=== PATIENT | female | born 1970 | race Caucasian/White ===

== ENCOUNTER → 2019-05-21 15:53 | Outpatient (BNVA) | payer BC, OTHER, SELFPAY | PROVIDERS: Visit Provider Nurse Practitioner Family | DX: I10 Essential (primary) hypertension (principal) | CPT/HCPCS: 80053; 80061; 84443 ==

== ENCOUNTER → 2019-09-03 11:33 | Outpatient (BNVA) | payer BC, SELFPAY | PROVIDERS: Visit Provider Nurse Practitioner Family | DX: I10 Essential (primary) hypertension (principal); E55.9 Vitamin D deficiency, unspecified; E11.9 Type 2 diabetes mellitus without complications | CPT/HCPCS: 80053; 80061; 83036; 84443; 85025 ==

== ENCOUNTER → 2019-09-10 17:01 | Outpatient (BNVA) | payer BC, SELFPAY | PROVIDERS: Visit Provider Nurse Practitioner Family | DX: E11.9 Type 2 diabetes mellitus without complications (principal); D64.9 Anemia, unspecified; G47.62 Sleep related leg cramps; E83.42 Hypomagnesemia; R35.0 Frequency of micturition; E55.9 Vitamin D deficiency, unspecified; K21.9 Gastro-esophageal reflux disease without esophagitis; I10 Essential (primary) hypertension | CPT/HCPCS: 81003 ==

== ENCOUNTER → 2019-09-17 15:02 | Outpatient (BNVA) | payer BC, SELFPAY | PROVIDERS: Visit Provider Nurse Practitioner Family | DX: D64.9 Anemia, unspecified (principal); G47.62 Sleep related leg cramps; E83.42 Hypomagnesemia; E55.9 Vitamin D deficiency, unspecified; E11.9 Type 2 diabetes mellitus without complications | CPT/HCPCS: 82306; 83540; 83735 ==

== ENCOUNTER → 2019-09-25 10:47 | Outpatient (BNVA) | payer BC, SELFPAY | PROVIDERS: Visit Provider Nurse Practitioner Family | DX: I10 Essential (primary) hypertension (principal); R73.9 Hyperglycemia, unspecified; M79.89 Other specified soft tissue disorders | CPT/HCPCS: 36415; 80053; 82306; 83540; 83735 ==

== ENCOUNTER 2021-10-12 08:06 | Outpatient (CLI) | payer BC, SELFPAY ==
--- NOTE | 2021-10-12 08:18 | MM_ITS ---
WS: [id number] . BILATERAL SCREENING DIGITAL TOMOSYNTHESIS MAMMOGRAM WITH CAD HISTORY: SCREENING COMPARISON: 09/10/2014 and 08/30/2013 Bilateral CC and MLO views with tomosynthesis and synthetic mammography submitted. Computer aided det ection analyzed. Breast composition: There are scattered areas of fibroglandular density. No suspicious masses, microc alcifications or architectural distortion. Benign RIGHT axillary tail lymph node. MM/[place] [id number] IMPRESSION: BI-RADS: 2-Benign FOLLOW UP: 1 Year Follow-up
== END 2021-10-12 08:07 | disposition home or self-care (01) ==
LOC: RAD 08:08
PROVIDERS: PCP Family Medicine; Visit Provider Family Medicine
DX: Z12.31 Encounter for screening mammogram for malignant neoplasm of breast (principal)
CPT/HCPCS: 77063; 77067

== ENCOUNTER 2022-04-14 17:19 | Emergency (ER) | payer BC, SELFPAY ==
[2022-04-14] VITALS (9 sets, daily range): BP systolic 115–152; BP diastolic 54–93; PULSE 60–80; RESP 14–25; O2SAT 94–98; BMI 32.8
--- NOTE | 2022-04-14 17:36 | ECG_ITS ---
[facility] Test Date: 2022-04-14 Pat Name: Elma Taylor Department: Room: Gender: Female Iv Therapy Nurse: : 1970 Requested By: Shelia Royal Order Number: [id number] Pete MD: Ger Pearson M.D. Measurements Intervals [place] Rate: 75 P: 3 [place]: 158 QRS: 19 QRSD: 79 T: 25 QT: 375 QTc: 420 Interpretive Statements SINUS RHYTHM WITH OCCASIONAL SUPRAVENTRICULAR PREMATURE COMPLEXES LOW QRS VOLTAGE IN PRECORDIAL LEADS [QRS DEFLECTION < 1.0 mV IN CHEST LEADS] WARNING: DATA QUALITY MAY AFFECT INTERPRETATION No previous ECG available for comparison Electronically Signed On 04-14-2022 22:51:09 MANGLE PRESS CATCH[employer] by Ger Pearson M.D. [id number]
--- NOTE | 2022-04-14 17:48 | XRR_ITS ---
PROCEDURE INFORMATION: Exam: XR Chest Exam date and time: 04/14/2022 6:20 PM Age: 51 years old Clinical indication: Pain; Chest pressure; Additional info: Pre op TECHNIQUE: Imaging protocol: Radiologic exam of the chest. Views: 1 view. COMPARISON: No relevant prior studies available. FINDINGS: Lungs: Unremarkable. No consolidation. Pleural spaces: Unremarkable. No pleural effusion. No pneumothorax. Heart/Mediastinum: Moderate intrathoracic hiatal hernia. Bones/joints: Unremarkable. Other findings: Patient rotation to the right. XR/XR chest 1V portable [id number] assessment IMPRESSION: Moderate intrathoracic hiatal hernia.
--- NOTE | 2022-04-14 17:52 | W.ED.CHESTPA ---
HPI - Chest Pain General: Chief Complaint: Chest Pain Stated Complaint: CHEST AND SHOULDER PAIN Time Seen by Provider: 04/14/22 17:29 Source: patient Mode of arrival: EMS Limitations: no limitations History of Present Illness: This 51-year-old female with a history of diabetes, GERD, hiatal hernia and hypertension presents to the ER with sudden onset left-sided chest pain/left shoulder pain that started while she was sitting down at work. Pain has been constant since onset and is associated with nausea but no vomiting. She has no fever or cough. She has never had pain like this before. She received 324 mg aspirin and 4 mg Zofran in route to the hospital. She currently rates pain at 4 out of 10. Review of Systems Const: Denies: chills, body aches or change in appetite Card: Reports: chest pain; Denies: lightheadedness : Denies: dysuria Musc: Reports: joint pain (Left shoulder); Denies: neck pain or back pain Neuro: Denies: headache(s) or weakness in extremities Psych: Denies: depression PFSH ED PFSH: Medical History Anemia Diabetes mellitus, type II Essential hypertension GERD (gastroesophageal reflux disease) Hypomagnesemia Leg cramps, sleep related Otitis externa Otitis media Psychiatric care Urinary frequency Vaginal yeast infection Vitamin D deficiency Surgical History Hx laparoscopic cholecystectomy S/P appendectomy S/P complete hysterectomy due to endometriosis Social History Smoking and tobacco status: never smoked Physical Exam Const: COMMON NORMALS: no acute distress, patient oriented x3, no limitations and alert Neck/C-Spine: COMMON NORMALS: full ROM and supple Chest: COMMONS NORMALS: normal inspection of the chest OTHER: Mild tenderness on palpation of the left anterior chest wall. Resp: COMMON NORMALS: normal respiratory effort, No retractions, No use of accessory muscles and clear to auscultation bilaterally AUSCULTATION: clear to auscultation bilaterally Cardio: COMMON NORMALS: regular rate, regular rhythm and No murmurs present (Cardio) RATE: regular rate RHYTHM: regular rhythm GI: COMMON NORMALS: Normal to inspection, nondistended, normoactive bowel sounds present and non-tender : COMMON NORMALS: Yes no CVA tenderness BLADDER/KIDNEY EXAM: Yes no CVA tenderness Back/Pelvis: COMMON NORMALS: no CVA tenderness and no thoracic nor lumbar tenderness Extremity: GENERAL: Yes normal exam except as noted OTHER: Full range of left shoulder movement though with some discomfort. No distal neurovascular deficit. Neuro: COMMON NORMALS: patient oriented x3 and no focal motor deficits SENSORIUM/ORIENTATION: Yes alert Psych: COMMON NORMALS: mental status grossly normal and cooperative Course Vital Signs: Vital signs: Vital Signs Pulse Rate 77 04/14/22 21:59 Respiratory Rate 16 04/14/22 21:59 Blood Pressure 132/54 04/14/22 21:30 Pulse Oximetry 98 04/14/22 21:59 Oxygen Delivery Me thod 04/14/22 20:15 MDM - Chest Pain Medical Decision Making Medical decision making: Patient presents with sudden onset left-sided chest/shoulder pain that started while she was at work. On exam, there is mild tenderness on palpation of the left anterior chest wall and also pain on movement of the left shoulder. Patient denies fall or trauma to the chest/shoulder. Baseline troponin is 6 and repeat troponin 2 hours later is 6 with a delta of 0. EKG is negative for any acute injury or thoracic process. Chest x-ray reveals a moderate intrathoracic hiatal hernia which patient is aware of. There is no indication that she is having an acute coronary syndrome. On reevaluation, patient was feeling a lot better and happy to go home. She will benefit from an outpatient stress test which she was advised to follow-up with her primary care physician to arrange. Case management was also requested to schedule an outpatient stress test for her. Reasons to return were discussed. Patient verbalized understanding and agrees with the plan. Lab Data 04/14/22 17:06 04/14/22 17:06 Radiology Impressions Chest X-Ray 04/14/22 17:48 assessment IMPRESSION: Moderate intrathoracic hiatal hernia. Laboratory Results WBC 7.1 10^3/uL (4.0-10.0) 04/14/22 17:06 RBC 4.61 10^6/uL (4.1-5.3) 04/14/22 17:06 Hgb 12.3 g/dL (11.5-15.3) 04/14/22 17:06 Hct 38.1 % (37.0-47.0) 04/14/22 17:06 MCV 82.6 fl (81-99) 04/14/22 17:06 MCH 26.7 pg (28.0-34.0) L 04/14/22 17:06 MCHC 32.3 g/dL (30.0-36.0) 04/14/22 17:06 RDW 15.0 % (12.1-15.1) 04/14/22 17:06 Plt Count 221 10^3/cmm (130-400) 04/14/22 17:06 MPV 12.5 fL (7.4-10.4) H 04/14/22 17:06 Neut % (Auto) 54.3 % 04/14/22 17:06 Lymph % (Auto) 36.8 % 04/14/22 17:06 [place] % (Auto) 6.1 % 04/14/22 17:06 Eos % (Auto) 2.0 % 04/14/22 17:06 Baso % (Auto) 0.7 % 04/14/22 17:06 Neut # (Auto) 3.86 10^3/uL (1.8-7.7) 04/14/22 17:06 Lymph # (Auto) 2.6 10^3/uL (0.8-4.8) 04/14/22 17:06 [place] # (Auto) 0.4 10^3/uL (0.2-0.9) 04/14/22 17:06 Eos # (Auto) 0.1 10^3/uL (0.0-0.8) 04/14/22 17:06 Baso # (Auto) 0.1 10^3/uL (0.0-0.1) 04/14/22 17:06 Nucleated RBC % (auto) 0 % 04/14/22 17:06 Nucleated RBCs # 0.0 /100WBC 04/14/22 17:06 Sodium 132 mmol/L (136-145) L 04/14/22 17:06 Potassium 3.9 mmol/L (3.5-5.1) 04/14/22 17:06 Chloride 98 mmol/L (98-107) 04/14/22 17:06 Carbon Dioxide 23 mmol/L (22-29) 04/14/22 17:06 Anion Gap 14.9 (5-19) 04/14/22 17:06 BUN 11 mg/dL (6-20) 04/14/22 17:06 Creatinine 0.6 mg/dL (0.5-0.9) 04/14/22 17:06 GFR Calculation 105.0 mL/min (90-130) 04/14/22 17:06 Glucose 148 mg/dL (65-115) H 04/14/22 17:06 Calculated Osmolality 276 mOsm/kg (285-295) L 04/14/22 17:06 Calcium 9.7 mg/dL (8.5-10.5) 04/14/22 17:06 Total Bilirubin 0.2 mg/dL (0.15-1.2) 04/14/22 17:06 AST 20 U/L (0-32) 04/14/22 17:06 ALT 12 U/L (0-33) 04/14/22 17:06 Alkaline Phosphatase 140 U/L (35-105) H 04/14/22 17:06 Troponin T Baseline 6 ng/L (0-10) 04/14/22 17:06 Troponin T 120 Minute 6.00 ng/L (0-10) 04/14/22 19:25 Delta Troponin T 0 ABS# (0-10) 04/14/22 19:25 Total Protein 7.0 g/dL (6.6-8.7) 04/14/22 17:06 Albumin 4.3 g/dL (3.5-5.2) 04/14/22 17:06 Globulin 2.7 g/dL (1.3-4.6) 04/14/22 17:06 Discharge Plan Discharge Patient Disposition: Home Clinical Impression: Atypical chest pain Condition: Stable Prescriptions: No Action losartan 50 mg tablet 50 mg PO DAILY Qty: 30 4RF Rx Instructions: 340b pantoprazole 40 mg tablet,delayed release (DR/EC) See Rx Instructions .ROUTE .COMPLEX Qty: 60 0RF Dose Instruction: TAKE 1 TABLET (40 MG) BY MOUTH TWICE DAILY Rx Instructions: TAKE 1 TABLET (40 MG) BY MOUTH TWICE DAILY clobetasol 0.05 % ointment 1 applic topical BID 14 Days Qty: 45 1RF Rx Instructions: Apply to affected area no more than 2 weeks per month. not for face or skin folds Discharge Orders: Discharge ED (Routine); Ordered 04/14/22 Ordered By: Shelia Witt Referrals: Marci Almanzar MD [Primary Care Provider] - Discharge Diet: Usual diet Discharge Activity: Resume usual activity Patient Instructions: Opioid Safety, Pain Management Activity Restrictions/Additional Instructions: Continue taking your usual home medications. Keep a daily log of your blood pressure readings and discuss these with your primary care physician who will adjust her medications as needed. Follow-up with your primary care physician to arrange for an outpatient stress test. Return if you develop any new or worsening symptoms. Coding Level of Care Code ED Event Specialist Product Demonstrator for [employer]
[2022-04-14] MEDS: nitroglycerin 0.4 mg sublingual Tablet SUBLINGUAL (18:06)
[2022-04-14 18:20] LABS: Basophils # 0.1 10^3/uL (0.0-0.1); Basophils % 0.7 %; Eosinophils # 0.1 10^3/uL (0.0-0.8); Hematocrit 38.1 % (37.0-47.0); Hemoglobin 12.3 g/dL (11.5-15.3); Lymphocytes # 2.6 10^3/uL (0.8-4.8); Lymphocytes % 36.8 %; Mean Corpuscular HGB Conc 32.3 g/dL (30.0-36.0); Mean Corpuscular Hemoglobin 26.7 pg (28.0-34.0); Mean Corpuscular Volume 82.6 fl (81-99); Mean Platelet Volume 12.5 fL (7.4-10.4); Monocytes # 0.4 10^3/uL (0.2-0.9); Monocytes % 6.1 %; Neutrophils # 3.86 10^3/uL (1.8-7.7); Neutrophils % 54.3 %; Nucleated Red Blood Cells % 0 %; Platelet Count 221 10^3/cmm (130-400); Red Blood Count 4.61 10^6/uL (4.1-5.3); White Blood Count 7.1 10^3/uL (4.0-10.0)
[2022-04-14 18:46] LABS: Troponin(5th) Baseline 6 ng/L (0-10)
[2022-04-14 18:48] LABS: Alanine Aminotransferase 12 U/L (0-33); Albumin Level 4.3 g/dL (3.5-5.2); Alkaline Phosphatase 140 U/L (35-105); Anion Gap 14.9 (5-19); Aspartate Amino Transferase 20 U/L (0-32); Blood Urea Nitrogen 11 mg/dL (6-20); Calcium 9.7 mg/dL (8.5-10.5); Carbon Dioxide 23 mmol/L (22-29); Chloride 98 mmol/L (98-107); Globulin 2.7 g/dL (1.3-4.6); Glucose 148 mg/dL (65-115); Osmolality Calculated 276 mOsm/kg (285-295); Potassium 3.9 mmol/L (3.5-5.1); Sodium 132 mmol/L (136-145); Total Bilirubin 0.2 mg/dL (0.15-1.2)
[2022-04-14 20:07] LABS: Troponin 5 2HR Delta 0 ABS# (0-10)
--- NOTE | 2022-04-14 20:38 | ECG_ITS ---
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 Measurements Intervals [place] Rate: 61 P: -2 [place]: 150 QRS: 23 QRSD: 82 T: 25 QT: 422 QTc: 428 Interpretive Statements SINUS RHYTHM LOW QRS VOLTAGE IN PRECORDIAL LEADS [QRS DEFLECTION < 1.0 mV IN CHEST LEADS] Compared to ECG 04/14/2022 17:36:56 No significant changes Electronically Signed On 04-14-2022 22:51:29 [employer] by Ger Pearson M.D. [id number]
--- NOTE | 2022-04-15 10:59 | DCPLANNER ---
Addendum entered by Yael Fontana 05/13/22 10:45: manager council received the following message from centralized scheduling, regarding outpatient stress test that was ordered: Ms Kirsten. Elma Taylor Stress test was denied by insurance. This? was ordered by Dr Witt. manager council called patient and informed patient that if she felt like she needed the test, that she would need to follow up with her primary care physician and they could order test. Patient stated that she understood Original Note: manager council had message to schedule an outpatient stress test for patient. manager council faxed order for stress test to centralized scheduling, who will call patient with appointment information.
== END 2022-04-14 22:06 | disposition home or self-care (01) ==
PROVIDERS: Emergency Provider Family Medicine; PCP Family Medicine
DX: R07.89 Other chest pain (principal); K44.9 Diaphragmatic hernia without obstruction or gangrene; E11.9 Type 2 diabetes mellitus without complications; I10 Essential (primary) hypertension
CPT/HCPCS: 71045; 80053; 84484; 85025; 93005; 99285